=== PATIENT | female | born 1970 | race Caucasian/White ===

== ENCOUNTER → 2017-05-23 | Outpatient (CLI) | payer SELFPAY ==
[~2017-05-23] MED LIST: CELEXA40 MG PO; FLEXERIL 1010 MG/TAB PO; NORCO 325 MG-51 TAB PO; PRILOSEC 20MG20 MG PO
== END ==
LOC: COL.RAD 17:34
DX: S02.0XXB Fracture of vault of skull, initial encounter for open fracture (principal); X95.9XXA Assault by unspecified firearm discharge, initial encounter